=== PATIENT | male | born 1985 | race American Indian/Alaskan Native ===

== ENCOUNTER 2022-04-15 15:34 | Emergency (ER) | payer BC, OTHER ==
[2022-04-15] MEDS ORDERED: SODIUM CHLORIDE 0.9% 1000 ML 1,000 ML IV ONE (18:14)
[2022-04-15] MEDS ORDERED: FAMOTIDINE 20 MG/2 ML INJ IV ONE (18:14)
[2022-04-15] MEDS ORDERED: methylPREDNISolone Sod Succinate 125 MG/2 ML INJ IV ONE (18:14)
[2022-04-15] MEDS ORDERED: diphenhydrAMINE 50 MG/ML VIAL IV ONE (18:14)
--- NOTE | 2022-04-15 18:23 | Emergency Department Report ---
ED Allergic Reaction HPI - General Chief complaint: Allergic Reaction Stated complaint: LIP SWOLLEN ALLERGIC /SPIDER BITE Time Seen by Provider: 04/15/22 18:13 Source: patient Mode of arrival: Ambulatory Limitations: No Limitations - History of Present Illness Initial Comments: 36-year-old male who presents with swelling of his upper lip that he woke up to this morning. He had a chicken last night which is not unusual for him. Denies any allergies to food or medication. Patient denies taking any antihypertensive medication. Patient denies any shortness of breath or chest pain or palpitation. No other modifying or associated factors reported. - Related Data Previous Rx's Medication Instructions Recorded Last Taken Type diphenhydrAMINE [Benadryl CAP] 50 mg PO Q8HR PRN 5 Days #15 04/15/22 Unknown Rx capsule NS predniSONE [Deltasone] 20 mg PO BID 5 Days #10 tab NS 04/15/22 Unknown Rx Allergies Allergy/AdvReac Type Severity Reaction Status Date / Time No Known Allergies Allergy Unverified 04/15/22 17:12 ED Review of Systems ROS: Stated complaint: LIP SWOLLEN ALLERGIC /SPIDER BITE Other details as noted in HPI Comment: All other systems reviewed and negative ENT: other (Swelling/edema of upper lip) ED Past Medical Hx - Past Medical History Previous Medical History?: Yes Hx Hypertension: Yes - Surgical History Past Surgical History?: No - Social History Smoking Status: Never Smoker Substance Use Type: Alcohol - Medications Home Medications: Home Medications Medication Instructions Recorded Confirmed Last Taken Type diphenhydrAMINE [Benadryl CAP] 50 mg PO Q8HR PRN 5 Days #15 04/15/22 Unknown Rx capsule NS predniSONE [Deltasone] 20 mg PO BID 5 Days #10 tab NS 04/15/22 Unknown Rx ED Physical Exam - General Limitations: No Limitations General appearance: alert, in no apparent distress - Head Head exam: Present: normal inspection - Eye Eye exam: Present: normal appearance Pupils: Present: normal accommodation - ENT ENT exam: Present: other (noted with isolated edema of upper lip) - Neck Neck exam: Present: normal inspection, full ROM. Absent: tenderness - Respiratory Respiratory exam: Present: normal lung sounds bilaterally. Absent: respiratory distress, accessory muscle use - Cardiovascular Cardiovascular Exam: Present: regular rate, normal rhythm, normal heart sounds - GI/Abdominal GI/Abdominal exam: Present: soft, normal bowel sounds. Absent: distended, tenderness - Extremities Exam Extremities exam: Present: normal inspection, normal capillary refill. Absent: full ROM, tenderness, pedal edema - Back Exam Back exam: Absent: tenderness - Neurological Exam Neurological exam: Present: alert, oriented X3 - Psychiatric Psychiatric exam: Present: normal affect, normal mood - Skin Skin exam: Present: warm, other (edema upper lip ) ED Course Vital Signs 04/15/22 04/15/22 17:18 18:13 Temperature 97.8 F 97.4 F L Pulse Rate 78 88 Respiratory 20 20 Rate Blood Pressure 158/93 Blood Pressure 117/75 158/93 [Right] O2 Sat by Pulse 100 96 Oximetry - Reevaluation(s) Reevaluation #1: 04/15/22 18:46 Pt was able to tell his bedside nurse that he took one of his grandma's Lisinopril because his blood pressure was too high for him to be able to donate plasma yesterday evening. That act is likely the culprit or resulted in his current angioedema. ED Medical Decision Making - Medical Decision Making here with upper lip edema consistent with angioedema since this patient is on antihypertensive-- will go ahead and order Solumedrol 125 mg IV x1 and Benadryl 50 mg IV x 1 and Pepcid 20 mg IV x 1-- and will continue to monitor -- Critical care attestation.: If time is entered above; I have spent that time in minutes in the direct care of this critically ill patient, excluding procedure time. ED Disposition Clinical Impression: Angio-edema Qualifiers: Encounter type: initial encounter Qualified Code(s): T78.3XXA - Angioneurotic edema, initial encounter Disposition: HOME / SELF CARE / HOMELESS Is pt being admited?: No Does the pt Need Aspirin: No Condition: Stable Instructions: Angioedema, [id number], How to Use an Auto-Injector Pen Additional Instructions: It is very important and you do not take any medication that does not belong to you as you do not know how your body will react to. Increase your daily fluid to help your hydration Please discontinue lisinopril if you still have leftover Call and follow-up with your primary doctor in the next 3 to 5 days for progress Please do not hesitate to call or return to emergency room if your symptoms worsen or you develop shortness of breath or throat swellings It is very important to take your prednisone and Benadryl to continue to suppress your edema Prescriptions: diphenhydrAMINE [Benadryl CAP] 50 mg PO Q8HR PRN 5 Days #15 capsule NS PRN Reason: Allergic Reaction predniSONE [Deltasone] 20 mg PO BID 5 Days #10 tab NS Referrals: LEAH ESCAMILLA MD [Referring] - 3-5 Days Time of Disposition: 20:11
[2022-04-15 21:05] VITALS: BP 125/73
== END 2022-04-16 11:36 | disposition home or self-care (01) ==
LOC: EDSEX → ED 15:34
DX: T78.3XXA Angioneurotic edema, initial encounter (principal); X58.XXXA Exposure to other specified factors, initial encounter
CPT/HCPCS: 96361; 96374; 96375; 99282; J1200; J2930; J3490; J7030